=== PATIENT | female | born 1995 | race Caucasian/White ===

== ENCOUNTER 2018-03-10 23:41 | Emergency (ER) | payer OTHER ==
[2018-03-10 23:51] VITALS: RESP 18
[2018-03-11] MEDS ORDERED: ACETAMINOPHEN TAB 500 MG TAB PO STA (01:10)
--- NOTE | 2018-03-11 01:16 | US ---
EXAMINATION TYPE: US OB >= 14 wk fetus DATE OF EXAM: 03/11/2018 COMPARISON: None CLINICAL HISTORY: PainWalking outside her dog knocked her over having pain. TECHNIQUE: Transabdominal (TA) GESTATIONAL AGE / DATING Physician Established: (17 weeks/2 days) EDC: 08/17/2018 Dates by LMP: (17 weeks/2 days) EDC: 08/17/2018 Dates by First Scan: No previous this is first scan Dates by Current Scan: (18 weeks/1 days) EDC: 08/11/2018 Beta HCG (if available): Not available at this time SURVEY IUP: Single PLACENTA: Posterior PREVIA: No Previa ALTON: 11.6 cm Normal CERVICAL LENGTH (transabdominal: norm > 3.0cm): 3.4 cm BIOMETRY PRESENTATION: Vertex LIE: Longitudinal BPD: 3.96 cm cm 18 weeks / 0 days HC: 15.31 cm 18 weeks / 2 days AC: 12.86 cm 18 weeks / 3 days FL: 2.65 cm 18 weeks / 0 days ESTIMATED WEIGHT IN GRAMS: 230.86 grams ESTIMATED WEIGHT IN LBS/OZ: lbs. 8 oz. WEIGHT PERCENTAGE BASED ON ESTABLISHED DATES: 94.3% HC/AC: 1.19cm Normal FL/AC: 20.61cm Normal HEART RATE: 149 bpm RHYTHM: Normal Viable IUP 18w1d LUIS 08/17/2018 HR 149 BPM IMPRESSION: No complicating process seen.
[2018-03-11 01:32] LABS: Appearance,Urine Cloudy (Clear); Bilirubin,Urine Negative (Negative); Blood,Urine Negative (Negative); Color,Urine Yellow; Glucose,Urine (UA) Negative (Negative); Ketones,Urine Negative (Negative); Leukocyte Esterase,Urine Moderate (Negative); Mucus,Urine Few /hpf; Nitrite,Urine Negative (Negative); Protein,Urine Trace (Negative); RBC,Urine 2 /hpf (0-5); Specific Gravity,Urine 1.027 (1.001-1.035); Squamous Epithelial Cell,Urine 11 /hpf (0-4); Urobilinogen,Urine <2.0 mg/dL (<2.0); WBC,Urine 8 /hpf (0-5)
--- NOTE | 2018-03-11 01:48 | ED ---
Abdominal Pain HPI - General Source: patient Mode of arrival: ambulatory Limitations: no limitations <Norah Stovall - Last Filed: 03/11/18 03:44> <Lolita Sparks - Last Filed: 03/11/18 06:15> - General Chief Complaint: Abdominal Pain Stated Complaint: Fall-17 wks pg Time Seen by Provider: 03/11/18 00:24 - History of Present Illness Initial Comments: 23-year-old female patient who is 17 weeks presents to the emergency department today as a transfer from [facility]. Patient is . States that she was walking her dog when he had jumped up on her and caused her fall landing on her back. Patient denies hitting her head or losing consciousness during the fall. States she is having suprapubic abdominal pain that she describes as sharp and pinching. Patient states she is also having lower back pain radiates and to both hips. Patient denies any other injuries or concerns. She denies any radiation of the pain down her legs. Denies any numbness or tingling to the lower extremities. Denies any saddle anesthesia or loss of bowel or bladder control. Patient denies any abnormal vaginal bleeding or discharge. Patient denies any headache, neck pain, chest pain, shortness of breath, dizziness, weakness, abdominal pain, nausea, vomiting, or difficulties with bowel movements or urination. Patient was transferred here because ultrasound was unavailable at originating facility. She follows with Dr. Gissel CURRY outpatient. (Norah Stovall) - Related Data Home Medications Medication Instructions Recorded Confirmed Escitalopram [Lexapro] 20 mg PO DAILY 10/15/13 06/02/14 Lisdexamfetamine Dimesylate 40 mg PO DAILY 10/15/13 06/02/14 [Vyvanse] Levothyroxine Sodium [Levoxyl] 50 mcg PO DAILY 05/28/14 06/02/14 Lurasidone [Latuda] 40 mg PO DAILY 05/28/14 06/02/14 Norgestimate-Ethinyl Estradiol 1 each PO DAILY 05/28/14 06/02/14 [Ortho Tri-Cyclen 28 Tablet] Previous Rx's Medication Instructions Recorded LORazepam [Ativan] 0.5 mg PO TID PRN #15 tab 05/28/14 Allergies Allergy/AdvReac Type Severity Reaction Status Date / Time quetiapine fumarate Allergy Unknown Unknown Verified 03/10/18 23:50 [From Seroquel] tramadol Allergy Unknown Unknown Verified 03/10/18 23:50 Sulfa (Sulfonamide Allergy Rash/Hives Verified 03/10/18 23:50 Antibiotics) Review of Systems ROS Other: All systems not noted in ROS Statement are negative. <WilmanNorah M - Last Filed: 03/11/18 03:44> ROS Other: All systems not noted in ROS Statement are negative. <Lolita Sparks - Last Filed: 03/11/18 06:15> ROS Statement: Those systems with pertinent positive or pertinent negative responses have been documented in the HPI. Past Medical History Additional Past Medical History / Comment(s): migraine, kidney stones, History of Any Multi-Drug Resistant Organisms: None Reported Past Surgical History: Appendectomy, Cholecystectomy Past Psychological History: Anxiety, Bipolar, Depression Smoking Status: Never smoker Past Alcohol Use History: None Reported Past Drug Use History: None Reported <Norah Stovall - Last Filed: 03/11/18 03:44> General Exam Limitations: no limitations General appearance: alert, in no apparent distress, other (Social well-developed , well-nourished adult female patient in no acute distress. Vital signs upon presentation are temperature 98.8F, pulse 82, respirations 18, blood pressure 133/75, pulse ox 97% on room air.) Eye exam: Present: normal appearance, PERRL, EOMI. Absent: scleral icterus, conjunctival injection, periorbital swelling ENT exam: Present: normal exam, normal oropharynx, mucous membranes moist Neck exam: Present: normal inspection, full ROM, other (Nontender, no step-off, no deformity to firm midline palpation of the posterior cervical spine. Full range of motion without pain or limitation.). Absent: tenderness, meningismus, lymphadenopathy Respiratory exam: Present: normal lung sounds bilaterally. Absent: respiratory distress, wheezes, rales, rhonchi, stridor Cardiovascular Exam: Present: regular rate, normal rhythm, normal heart sounds. Absent: systolic murmur, diastolic murmur, rubs, gallop, clicks GI/Abdominal exam: Present: soft, tenderness (Left lower quadrant), normal bowel sounds. Absent: distended, guarding, rebound, rigid Back exam: Present: normal inspection, other (Nontender, no step-off, no deformity to firm midline palpation of the thoracic and lumbar vertebrae. Full range of motion without pain or limitation.). Absent: vertebral tenderness Neurological exam: Present: alert, oriented X3, CN II-XII intact Psychiatric exam: Present: normal affect, normal mood Skin exam: Present: warm, dry, intact, normal color. Absent: rash <Norah Stovall - Last Filed: 03/11/18 03:44> Vital Signs 03/10/18 03/11/18 23:46 02:26 Temperature 98.8 F 98.0 F Pulse Rate 82 68 Respiratory 18 18 Rate Blood Pressure 133/75 118/64 O2 Sat by Pulse 97 99 Oximetry Medical Decision Making - Radiology Data Radiology results: report reviewed <Norah Stovall - Last Filed: 03/11/18 03:44> <Lolita Sparks - Last Filed: 03/11/18 06:15> - Medical Decision Making 23-year-old female patient presented to the emergency department today for evaluation of lower abdominal pain and low back pain after experiencing a fall today. Patient is 17 weeks . No vaginal bleeding or discharge. Ultrasound was obtained and showed a viable intrauterine with no complicating process identified. heart rate was 149. Urinalysis was obtained and did show 8 white blood cells however sample was contaminated. There is no bacteria present. Patient is asymptomatic at this time, we will culture. Did discuss findings and results with the patient. Patient is also complaining of increased back pain after the fall however we did discuss x-ray and exposure of radiation to the fetus, patient declined x-ray at this time. She was given Tylenol here in the department. She will be discharged at this time with diagnosis of low back strain. She is instructed to follow-up with her [facility] for further evaluation as soon as possible. Return parameters discussed in detail. She verbalizes understanding and agrees with this plan. (Norah Stovall) I was available for consultation in the emergency department. The history and physical exam were done by the midlevel provider. I was consulted for this patient's care. I reviewed the case with the midlevel provider and based on their presentation of the patient, I agree with the assessment, medical decision making and plan of care as documented. (Lolita Sparks) - Lab Data Lab Results 03/11/18 Range/Units 00:50 Urine Color Yellow Urine Appearance Cloudy H (Clear) Urine pH 6.0 (5.0-8.0) Ur Specific [place] 1.027 (1.001-1.035) Urine Protein Trace H (Negative) Urine Glucose (UA) Negative (Negative) Urine Ketones Negative (Negative) Urine Blood Negative (Negative) Urine Nitrite Negative (Negative) Urine Bilirubin Negative (Negative) Urine Urobilinogen <2.0 (<2.0) mg/dL Ur Leukocyte Esterase Moderate H (Negative) Urine RBC 2 (0-5) /hpf Urine WBC 8 H (0-5) /hpf Ur Squamous Epith Cells 11 H (0-4) /hpf Urine Mucus Few H (None) /hpf - Radiology Data ultrasound was obtained. Report was reviewed in its entirety. Impression by Dr. Fox shows no Acute process. Viable intrauterine measuring 18 weeks 1 day with an estimated date of delivery 2018. Heart rate 149 bpm. (Norah Stovall) Disposition Is patient prescribed a controlled substance at d/c from ED?: No Time of Disposition: 01:48 <Norah Stovall - Last Filed: 03/11/18 03:44> <Lolita Sparks - Last Filed: 03/11/18 06:15> Clinical Impression: Abdominal pain during , Acute low back pain Disposition: HOME SELF-CARE Condition: Good Instructions: Acute Low Back Pain (ED), Abdominal Pain in (ED) Additional Instructions: Take Tylenol for pain control. Increase fluids. Follow-up with your [facility] for recheck as soon as possible. Return here immediately for any new, worsening , or concerning symptoms. Referrals: Yane Castillo DO [Primary Care Provider] - 1-2 days
[2018-03-11 02:27] VITALS: BP 118/64; PULSE 68; TEMP 98
== END 2018-03-11 02:27 | disposition home or self-care (01) ==
LOC: SUPCPDRO 23:41 → EC 23:41
DX: O9A.212 Injury, poisoning and certain other consequences of external causes complicating pregnancy, second trimester (principal); S39.012A Strain of muscle, fascia and tendon of lower back, initial encounter; O99.89 Other specified diseases and conditions complicating pregnancy, childbirth and the puerperium; R10.9 Unspecified abdominal pain; O99.342 Other mental disorders complicating pregnancy, second trimester; F41.9 Anxiety disorder, unspecified; F31.9 Bipolar disorder, unspecified; Z3A.18 18 weeks gestation of pregnancy; Z90.49 Acquired absence of other specified parts of digestive tract; Z87.442 Personal history of urinary calculi; Z79.3 Long term (current) use of hormonal contraceptives; Z79.899 Other long term (current) drug therapy; Z88.2 Allergy status to sulfonamides; Z88.5 Allergy status to narcotic agent; Z88.8 Allergy status to other drugs, medicaments and biological substances; W01.0XXA Fall on same level from slipping, tripping and stumbling without subsequent striking against object, initial encounter; W54.1XXA Struck by dog, initial encounter; Y93.K1 Activity, walking an animal
CPT/HCPCS: 76805; 81001; 87086; 99284

== ENCOUNTER 2018-07-12 15:55 | Outpatient (CLI) | payer OTHER ==
[2018-07-12 16:33] VITALS: PULSE 86; RESP 16; TEMP 98.1
[2018-07-12 17:35] VITALS: BP 126/85
--- NOTE | 2018-08-05 10:59 | P.MSEPDOC ---
Presenting Problems - Arrival Data Date of Arrival on Unit: 07/12/18 Time of Arrival on Unit: 16:06 Mode of Transport: Ambulatory - Complaint OB-Reason for Admission/Chief Complaint: Rule Out PROM Comment: pt arrived c/o questionable whether her water broke pt states she had a gush of fluid earlier in the day but [id number] any gush at this time Medical History - Information : 1 Para: 0 Term: 0 : 0 Abortions: Spontaneous or Elective: 0 Number of Living Children: 0 - Gestational Age Gestational Age by LUIS (wks/days): 34 Weeks and 6 Days Review of Systems - Review of Systems Constitutional: No problems Breast: No problems ENT: No problems Cardiovascular: No problems Respiratory: No problems Gastrointestinal: No problems Genitourinary: No problems Musculoskeletal: No problems Neurological: Dizziness Skin: No problems Vital Signs - Temperature Temperature: 98.1 F Temperature Source: Oral - Pulse Right Brachial Pulse Rate: 86 Pulse Assessment Method: Auscultation - Respirations Respiratory Rate: 16 Oxygen Delivery Method: Room Air - Blood Pressure Right Arm Blood Pressure: 126/85 Blood Pressure Mean: 98 Blood Pressure Source: Automatic Cuff Medical Screen Scoring (Post) - Cervical Exam Dilation: 0 cm = 0 Membranes: Intact - Uterine Contractions Frequency: N/A Intensity: N/A - Maternal Vital Signs Maternal Temperature: N/A Maternal Blood Pressure: N/A Signs of Preeclampsia: N/A Maternal Respirations: N/A - Pain Assessment Pain Scale Used: Numeric (1 - 10) Pain Intensity: 0 Pain Management Goal: 0 Pain Behavior: Vocalization - Maternal Trauma Maternal Trauma: N/A - Assessment Heart Rate: 130 Heart Rate - NICHD Category: Category I (Normal) = 0 NST: Reactive Position: N/A - Total Score Total Score (Post): 0 - Post Treatment Level of Risk Post Treatment Level of Risk: Low (0-5) Physician Notification (Post) - Physician Notified Physician Notified Date: 07/12/18 Physician Notified Time: 16:30 Spoke With: dr may New Order Received: Yes - Notification Comment Comment: amnsiure negative cervix closed b/p retaken and 126/85 no h/a or visual distribance. may discharge to home Disposition - Disposition OB Disposition: Discharge to home Discharge Date: 07/12/18 Discharge Time: 17:30 I agree with the RN Medical Screening Exam: Yes Risk & Benefit of care provided described in d/c instruction: Yes Diagnosis: FALSE LABOR BEFORE 37 COMPLETED WEEKS OF GEST, THIRD TRI
== END 2018-07-12 17:35 | disposition home or self-care (01) ==
LOC: FBPOP 15:55
PROVIDERS: ATTEND Obstetrics & Gynecology Obstetrics
DX: O47.03 False labor before 37 completed weeks of gestation, third trimester (principal); Z3A.34 34 weeks gestation of pregnancy
CPT/HCPCS: 59025; 84112; G0463; 99213

== ENCOUNTER 2018-07-22 03:40 | Outpatient (CLI) | payer OTHER ==
[2018-07-22 04:02] VITALS: BP 130/88; PULSE 80; RESP 16; TEMP 97.9
[2018-07-22] MEDS ORDERED: LACTATED RINGERS 1,000 ML IV SCH (04:30)
--- NOTE | 2018-07-28 08:46 | P.MSEPDOC ---
Presenting Problems - Arrival Data Date of Arrival on Unit: 07/22/18 Time of Arrival on Unit: 03:40 Mode of Transport: Wheelchair - Complaint OB-Reason for Admission/Chief Complaint: Possible Onset of Labor Comment: Contractions that started around 2230 this evening. approximately 2-3 minutes apart. denies pain with contractions just feeling tightening with contractions. Medical History - Information : 1 Para: 0 Term: 0 : 0 Abortions: Spontaneous or Elective: 0 Number of Living Children: 0 - Gestational Age Gestational Age by LUIS (wks/days): 36 Weeks and 2 Days Review of Systems - Review of Systems Constitutional: No problems Breast: No problems ENT: No problems Cardiovascular: No problems Respiratory: No problems Gastrointestinal: No problems Genitourinary: No problems Musculoskeletal: No problems Neurological: No problems Skin: No problems Vital Signs - Temperature Temperature: 97.9 F Temperature Source: Oral - Pulse Right Pulse Rate: 80 - Respirations Respiratory Rate: 16 - Blood Pressure Right Arm Blood Pressure: 130/88 Blood Pressure Mean: 102 Blood Pressure Source: Automatic Cuff Medical Screen Scoring (Pre) - Cervical Exam Dilation: 1-3 cm = 1 Effacement: More than 50% = 2 Membranes: Intact - Uterine Contractions Frequency: > or = 36 weeks =2 Duration: > 40 seconds = 2 Intensity: N/A - Maternal Vital Signs Maternal Temperature: N/A Maternal Blood Pressure: N/A Signs of Preeclampsia: N/A Maternal Respirations: N/A - Assessment Baseline FHR: 130 Heart Rate - NICHD Category: Category I (Normal) = 0 NST: Reactive Position: N/A Station: N/A - Total Score Total Score (Pre): 7 - Level of Risk Level of Risk: Medium (6-9) Physician Notification (Pre) - Physician Notified Physician Notified Date: 07/22/18 Physician Notified Time: 04:16 Physician/Practitioner Notifed:: Dr. Taylor New Order Received: Yes - Notification Comment Comment: Initiate IV access, give 1L bolus of LR, recheck cervix in one hour, if cervix remains unchanged okay to discharge patient home with instructions and patient to keep regularly scheduled appt. with Roseann in the office today. Disposition - Disposition OB Disposition: Discharge to home, Written follow up instructions reviewed Discharge Date: 07/22/18 Discharge Time: 05:45 I agree with the RN Medical Screening Exam: Yes Risk & Benefit of care provided described in d/c instruction: Yes Diagnosis: FALSE LABOR, UNSPECIFIED
== END 2018-07-22 05:45 | disposition home or self-care (01) ==
LOC: FBPOP 03:40
PROVIDERS: ATTEND Obstetrics & Gynecology
DX: O47.03 False labor before 37 completed weeks of gestation, third trimester (principal); Z3A.36 36 weeks gestation of pregnancy
CPT/HCPCS: 59025; 96360; G0463; 96365; 99213; 99214

== ENCOUNTER 2018-07-23 19:25 | Outpatient (CLI) | payer OTHER ==
[2018-07-23 21:40] VITALS: BP 131/81; PULSE 78; RESP 16; TEMP 97.8
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
== END 2018-07-23 20:55 | disposition home or self-care (01) ==
LOC: FBPOP 19:25
PROVIDERS: ATTEND Obstetrics & Gynecology
DX: O99.353 Diseases of the nervous system complicating pregnancy, third trimester (principal); G89.11 Acute pain due to trauma; Z3A.36 36 weeks gestation of pregnancy
CPT/HCPCS: 59025; G0463; 99213

== ENCOUNTER 2018-07-23 20:59 | Emergency (ER) | payer OTHER ==
[2018-07-23 21:10] VITALS: RESP 16
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
[2018-07-23 21:52] VITALS: BP 126/86; PULSE 78; TEMP 98.5
== END 2018-07-23 21:51 | disposition home or self-care (01) ==
LOC: EC 20:59
DX: O9A.213 Injury, poisoning and certain other consequences of external causes complicating pregnancy, third trimester (principal); S09.90XA Unspecified injury of head, initial encounter; Z3A.36 36 weeks gestation of pregnancy; Z88.2 Allergy status to sulfonamides; Z88.5 Allergy status to narcotic agent; Z88.8 Allergy status to other drugs, medicaments and biological substances; W00.0XXA Fall on same level due to ice and snow, initial encounter; Y93.01 Activity, walking, marching and hiking
CPT/HCPCS: 99283 ×2; 59025; G0463; 99213

== ENCOUNTER 2018-08-13 05:52 | Inpatient (IN) | payer OTHER ==
[2018-08-13] MEDS ORDERED: OXYTOCIN 10 UNIT/ML 1 ML VIAL IM PRN (06:10)
[2018-08-13] MEDS ORDERED: CARBOPROST TROMETHAMINE 250 MCG/ML 1 ML AMP IM PRN (06:10)
[2018-08-13] MEDS ORDERED: LIDOCAINE 0.5% (PF) 5 MG/ML (50 ML SDV) SQ PRN (06:10)
[2018-08-13] MEDS ORDERED: PENICILLIN G POTASSIUM 5,000,000 UNIT in DEXTROSE 5% IN WATER 100 ML IVPB STA ×2 (06:10)
[2018-08-13] MEDS ORDERED: METHYLERGONOVINE 0.2 MG/ML 1 ML AMP IM PRN (06:10)
[2018-08-13] MEDS ORDERED: TERBUTALINE 1 MG/ML VIAL SQ PRN (06:10)
[2018-08-13] MEDS ORDERED: OXYTOCIN 30 UNITS/500 ML NS 30 UNIT in SALINE 1 500ML.BAG IV SCH (06:15)
[2018-08-13 06:17] VITALS: BMI 39.9
[2018-08-13 06:20] LABS: Basophils % (A) 0 %; Eosinophils # (A) 0.1 k/uL (0-0.7); Eosinophils % (A) 1 %; HCT 37.1 % (34.0-46.0); HGB 12.3 gm/dL (11.4-16.0); Lymphocytes # (A) 2.7 k/uL (1.0-4.8); Lymphocytes % (A) 19 %; MCH 30.9 pg (25.0-35.0); MCHC 33.2 g/dL (31.0-37.0); MCV 93.2 fL (80.0-100.0); Mean Platelet Volume 7.3; Monocytes # (A) 0.5 k/uL (0-1.0); Monocytes % (A) 3 %; Neutrophils # (A) 10.4 k/uL (1.3-7.7); Neutrophils % (A) 75 %; Platelet Count 251 k/uL (150-450); RBC 3.98 m/uL (3.80-5.40); RDW 13.5 % (11.5-15.5); WBC 13.8 k/uL (3.8-10.6)
[2018-08-13] MEDS: LACTATED RINGERS 1,000 ML IV SCH ×2 (06:29→21:20)
--- NOTE | 2018-08-13 07:51 | P.HPOB ---
History of Present Illness H&P Date: 08/13/18 This is a 23-year-old white female 1 para 0 EDC 08/17/2018 at 39-3/7 weeks' gestation. Patient presents for induction for advanced cervical dilatation. Fetus is been active throughout the . She is having mild irregular contractions at this time. She denies fluid leakage or vaginal bleeding. Past medical history is significant for anxiety and depression, mild hypertension. Social history patient is single, she has never been a smoker, she denies alcohol or drug use. Family history is significant for hypertension and hepatitis C along with depression. ALLERGIES include sulfa to which reports an anaphylactic reaction, and seasonal ALLERGIES. Current medications vitamins daily, Zoloft 50 mg daily. Past surgical history is significant for cholecystectomy and appendectomy. Past medical history significant for anxiety, attention deficit disorder, bipolar disorder, borderline personality disorder, depression, obsessive compulsive disorder. She follows with Olga Villaseñor, a therapist at [facility] in [facility]. Obstetric history is significant for blood type O+, rubella status immune. Positive group B strep noted in the urine earlier in the , treated with 3 culture negative. VDRL nonreactive, HIV negative, hepatitis B surface antigen negative. Baseline liver enzymes negative, gonorrhea and chlamydia cultures negative, 1 hour Glucola 121. On exam this is a pleasant young female, 5 foot 5 inches, 240 pounds, blood p ressure 143/88, vital signs otherwise stable. The general physical exam is within normal limits. The chest is clear in all mcintosh. Extremities reveal no edema. Cervix is 6 cm dilated, 70-80% effaced, -2 station, anterior, soft. Vertex presentation. Artificial amniorrhexis reveals clear fluid. heart rate is consistent with reactive NST. Impression: 39-3/7 weeks intrauterine , advanced cervical dilatation, multiple psychiatric diagnoses, otherwise healthy young individual. All signs at this time reassuring from the obstetric standpoint. Plan: Oxytocin per hospital protocol. Continue close maternal and surveillance. Anticipate normal spontaneous vaginal delivery. Review of Systems Constitutional: Reports as per HPI Past Medical History Additional Past Medical History / Comment(s): migraine, kidney stones, History of Any Multi-Drug Resistant Organisms: None Reported Past Surgical History: Appendectomy, Cholecystectomy Past Anesthesia/Blood Transfusion Reactions: No Reported Reaction Past Psychological History: Anxiety, Bipolar, Depression Smoking Status: Never smoker Past Alcohol Use History: None Reported Past Drug Use History: None Reported - Past Family History Father Family Medical History: Coronary Artery Disease (CAD), Hypertension Medications and Allergies Home Medications Medication Instructions Recorded Confirmed Type Pnv No.95/Ferrous Fum/Folic AC 1 tab PO DAILY 07/12/18 08/13/18 History [ Multivitamin Tablet] Allergies Allergy/AdvReac Type Severity Reaction Status Date / Time quetiapine fumarate Allergy Unknown Rash/Hives Verified 08/13/18 06:09 [From Seroquel] Sulfa (Sulfonamide Allergy Anaphylaxis Verified 08/13/18 06:09 Antibiotics) tramadol AdvReac Unknown SEIZURES Verified 08/13/18 06:09 Exam Vital Signs Temp Pulse Resp BP 08/13/18 06:12 98.6 F 96 16 143/88 Intake and Output 08/12/18 08/13/18 08/13/18 22:59 06:59 14:59 Other: Weight 108.862 kg See dictation under HPI please Results Result Diagrams: 08/13/18 06:10 Abnormal Lab Results - Last 24 Hours (Table) 08/13/18 Range/Units 06:10 WBC 13.8 H (3.8-10.6) k/uL Neutrophils # 10.4 H (1.3-7.7) k/uL Assessment and Plan Assessment: 39-3/7 weeks intrauterine , here for induction of labor with advanced cervical dilatation. Plan: Oxytocin per hospital protocol. Continue close maternal and surveillance. Anticipate normal spontaneous vaginal delivery. Time with Patient: Less than 30
[2018-08-13] MEDS ORDERED: fentaNYL (PF) 50 MCG/ML 5 ML AMP ONE (08:49)
[2018-08-13] MEDS ORDERED: ROPIVACAINE 5MG/ML 20ML VIAL ONE (08:49)
[2018-08-13] MEDS ORDERED: SODIUM CHLORIDE 0.9% 100 ML BAG ONE (08:49)
[2018-08-13] MEDS ORDERED: ROPIVACAINE 100 MG, fentaNYL (PF) 200 MCG in SODIUM CHLORIDE 0.9% 76 ML EPIDURAL ONE (09:15)
[2018-08-13] MEDS: PENICILLIN G POTASSIUM 2,500,000 UNIT in DEXTROSE 5% IN WATER 100 ML IVPB SCH ×6 (10:22→21:21)
[2018-08-13] MEDS ORDERED: ZOLPIDEM 5 MG TAB PO PRN (12:42)
[2018-08-13] MEDS ORDERED: LANOLIN CREAM 5 GM TUBE TOPICAL PRN (12:42)
[2018-08-13] MEDS ORDERED: WITCH HAZEL 1 EACH MED..PAD TOPICAL PRN (12:42)
[2018-08-13] MEDS ORDERED: diphenhydrAMINE 50 MG CAP PO PRN (12:42)
[2018-08-13] MEDS ORDERED: diphenhydrAMINE 50 MG/ML 1 ML VIAL IVP PRN ×2 (12:42)
[2018-08-13] MEDS ORDERED: diphenhydrAMINE 25 MG CAP PO PRN (12:42)
[2018-08-13] MEDS ORDERED: SIMETHICONE 80 MG CHEWABLE PO PRN (12:42)
[2018-08-13] MEDS ORDERED: BENZOCAINE/MENTHOL SPRAY 1 GM/SPRAY AEROSOL TOPICAL PRN (12:42)
[2018-08-13] MEDS ORDERED: HYDROCORTISONE 2.5% RECTAL CREAM 30 GM TUBE RECTAL PRN (12:42)
[2018-08-13] MEDS ORDERED: ACETAMINOPHEN TAB 325 MG TAB PO PRN (12:42)
--- NOTE | 2018-08-13 12:42 | P.PROBDLV ---
Vaginal Delivery Note - . Vaginal Delivery Note: This is a 23-year-old white female 1 para 0 EDC 08/17/2018 at 39-3/7 weeks' gestation. Patient presented for induction for advanced cervical dilatation. Her is Dictated by anxiety and depression, obsessive compulsive disorder, and bipolar disease. Blood type O positive, rubella status immune, group B strep cultures positive. Please see my dictated history and physical for details. Artificial amniorrhexis revealed clear fluid. Oxytocin was started and titrated per hospital protocol. She requested epidural and this was placed without difficulty per the anesthesia staff. She became completely dilated at 1151 hours and began the second stage of labor at that time. Successfully in the dorsal lithotomy position. Perineal body was prepped and draped in usual sterile fashion. Ultimately the fetus's head delivered in the occiput anterior position. There was no nuchal cord noted. The restituted accordingly. The right or anterior shoulder was delivered from underneath the pubic symphysis at which time the oropharynx, nasopharynx, and external nares were all bulb suctioned. Patient was officially delivered of a liveborn male at 1221 hours. Umbilical cord was doubly clamped and ligated, he was handed to waiting nurses for evaluation where scores of 9 and 9 at one and 5 minutes respectively were given. Placenta delivered spontaneously, it was inspected and noted to be intact with trivascular cord at 12-3 hours. Uterus is massaged. Inspection of the cervix, vagina, perineum, periurethral, and perirectal areas revealed 2 small labial minora lacerations. These are repaired easily with a running locking stitch of 3-0 Vicryl for excellent reapproximation. All sponge needle and enhancement counts are correct at the end of the procedure. Infant weighs 8 lbs. 0 oz. or 3630 g. Patient is requesting circumcision for her infant son. All sponge needle and enhancement counts are correct at the end of the procedure.
[2018-08-13] MEDS ORDERED: OXYTOCIN 20 UNITS/1000 ML NS 1,000 ML IV SCH (12:45)
[2018-08-13] MEDS: IBUPROFEN 600 MG TAB PO PRN (14:32)
[2018-08-13] MEDS: SENNOSIDES-DOCUSATE SODIUM 1 EACH TAB PO SCH (20:25)
[2018-08-14 06:40] LABS: Basophils % (A) 0 %; Eosinophils # (A) 0.1 k/uL (0-0.7); Eosinophils % (A) 1 %; HCT 30.7 % (34.0-46.0); HGB 10.2 gm/dL (11.4-16.0); Lymphocytes # (A) 3.7 k/uL (1.0-4.8); Lymphocytes % (A) 21 %; MCHC 33.4 g/dL (31.0-37.0); MCV 92.9 fL (80.0-100.0); Mean Platelet Volume 7.9; Monocytes # (A) 0.7 k/uL (0-1.0); Monocytes % (A) 4 %; Neutrophils # (A) 12.9 k/uL (1.3-7.7); Neutrophils % (A) 73 %; Platelet Count 215 k/uL (150-450); RDW 13.7 % (11.5-15.5); WBC 17.7 k/uL (3.8-10.6)
[2018-08-14] MEDS: SENNOSIDES-DOCUSATE SODIUM 1 EACH TAB PO SCH (07:41)
--- NOTE | 2018-08-14 08:21 | P.DS ---
Providers Date of admission: 08/13/18 05:52 Expected date of discharge: 08/14/18 Attending physician: Nuvia Chauhan Primary care physician: [facility] Course: This is a 23-year-old white female 1 para 0 EDC 08/17/2018 at 39-3/7 weeks' gestation. Patient presented for induction for advanced cervical dilatation. essentially unremarkable, group B strep cultures positive, rubella status immune, blood type O positive. Please see dictated history and physical for details. Artificial amniorrhexis revealed clear fluid. Oxytocin was started and titrated. She went on to deliver vaginally a male infant with scores of 9 and 9 at one and 5 minutes respectively. Infant weight 8 pounds or 3630 g. Estimated blood loss 400 mL, bilateral small labial lacerations were noted, second degree, easily repaired. Please see dictated delivery note for details. This morning the patient is doing well. She denies anxiety or depression, she feels energized and happy. is doing well, circumcision will be performed. Patient's vital signs are stable and she has remained afebrile. Fundus is firm and in the midline, symmetric and 18 week size. Extremities are negative for edema. Breasts are not engorged. Patient is being discharged home this morning in very good condition. She will follow-up with me in the office in 6 weeks. I have reminded her no intercourse, tampons or douching. She will use [id number] Advil or Aleve as needed for pain. I've asked her to call me with any fevers shakes or chills, foul smelling or copious lochia, with the passage of large blood clots, with any pain not alleviated by [id number] products, or indeed with any concerns. We have briefly reviewed contraceptive options and she will consider these options and we will discuss this in the office to follow. Patient Condition at Discharge: Good Plan - Discharge Summary Discharge Rx Participant: No New Discharge Prescriptions: No Action Pnv No.95/Ferrous Fum/Folic AC [ Multivitamin Tablet] 1 tab PO DAILY Discharge Medication List Pnv No.95/Ferrous Fum/Folic AC [ Multivitamin Tablet] 1 tab PO DAILY 07/12/18 [History] Follow up Appointment(s)/Referral(s): Nuvia Chauhan MD [STAFF PHYSICIAN] - 6 Weeks Discharge Disposition: HOME SELF-CARE
[2018-08-14] MEDS: IBUPROFEN 600 MG TAB PO PRN (08:28)
[2018-08-14 09:13] VITALS: BP 127/85; PULSE 99; RESP 17; TEMP 98.1
== END 2018-08-14 15:20 | disposition home or self-care (01) | DRG 806 ==
LOC: 4FBP 05:52
PROVIDERS: ADMIT Obstetrics & Gynecology; ATTEND Obstetrics & Gynecology
PROC: 10E0XZZ Delivery of Products of Conception, External Approach (ICD-10-PCS; principal; 2018-08-13)
PROC: 0KQM0ZZ Repair Perineum Muscle, Open Approach (ICD-10-PCS; 2018-08-13)
PROC: 3E033VJ Introduction of Other Hormone into Peripheral Vein, Percutaneous Approach (ICD-10-PCS; 2018-08-13)
PROC: 10907ZC Drainage of Amniotic Fluid, Therapeutic from Products of Conception, Via Natural or Artificial Opening (ICD-10-PCS; 2018-08-13)
PROC: 00HU33Z Insertion of Infusion Device into Spinal Canal, Percutaneous Approach (ICD-10-PCS; 2018-08-13)
PROC: 3E0R3BZ Introduction of Anesthetic Agent into Spinal Canal, Percutaneous Approach (ICD-10-PCS; 2018-08-13)
DX: O70.1 Second degree perineal laceration during delivery (principal); O10.92 Unspecified pre-existing hypertension complicating childbirth; Z37.0 Single live birth; Z3A.39 39 weeks gestation of pregnancy; O99.824 Streptococcus B carrier state complicating childbirth; O99.344 Other mental disorders complicating childbirth; F31.9 Bipolar disorder, unspecified; G43.909 Migraine, unspecified, not intractable, without status migrainosus; F60.3 Borderline personality disorder; F42.9 Obsessive-compulsive disorder, unspecified; F41.9 Anxiety disorder, unspecified; J30.2 Other seasonal allergic rhinitis; F98.8 Other specified behavioral and emotional disorders with onset usually occurring in childhood and adolescence; Z79.899 Other long term (current) drug therapy; Z90.49 Acquired absence of other specified parts of digestive tract; Z87.442 Personal history of urinary calculi; Z88.2 Allergy status to sulfonamides; Z88.5 Allergy status to narcotic agent; Z88.8 Allergy status to other drugs, medicaments and biological substances; Z82.49 Family history of ischemic heart disease and other diseases of the circulatory system; Z81.8 Family history of other mental and behavioral disorders; Z83.1 Family history of other infectious and parasitic diseases
CPT/HCPCS: 85025; 86850; 86900; 86901

== ENCOUNTER 2019-02-12 15:28 | Emergency (ER) | payer OTHER ==
[2019-02-12 15:42] VITALS: RESP 18
--- NOTE | 2019-02-12 16:46 | ED ---
General Adult HPI - General Chief complaint: Chest Pain Stated complaint: Chest pressure Time Seen by Provider: 02/12/19 16:02 Source: patient Mode of arrival: ambulatory Limitations: no limitations - History of Present Illness Initial comments: Patient presents to the ED complaining of having chest pressure for the past week or so. Patient states that she was sent here from her primary care provider's clinic for further evaluation. Patient states that her chest pressure is diffuse in her chest and constant. Patient denies having any associated symptoms. Patient denies trauma or injury, fever or chills, neck/arm/jaw/back pain, pleuritic pain, dyspnea, cough or cold symptoms, palpitations, syncope, abdominal pain, nausea/vomiting/diarrhea, leg or calf swelling or tenderness, or any other symptoms or complaints. - Related Data Home Medications Medication Instructions Recorded Confirmed Pnv No.95/Ferrous Fum/Folic AC 1 tab PO DAILY 07/12/18 08/13/18 [ Multivitamin Tablet] Allergies Allergy/AdvReac Type Severity Reaction Status Date / Time quetiapine fumarate Allergy Unknown Rash/Hives Verified 02/12/19 15:41 [From Seroquel] Sulfa (Sulfonamide Allergy Anaphylaxis Verified 02/12/19 15:41 Antibiotics) tramadol AdvReac Unknown SEIZURES Verified 02/12/19 15:41 Review of Systems ROS Statement: Those systems with pertinent positive or pertinent negative responses have been documented in the HPI. ROS Other: All systems not noted in ROS Statement are negative. Past Medical History Additional Past Medical History / Comment(s): migraine, kidney stones History of Any Multi-Drug Resistant Organisms: None Reported Past Surgical History: Appendectomy, Cholecystectomy Past Anesthesia/Blood Transfusion Reactions: No Reported Reaction Past Psychological History: Anxiety, Bipolar, Depression Smoking Status: Never smoker Past Alcohol Use History: None Reported Past Drug Use History: None Reported - Past Family History Father Family Medical History: Coronary Artery Disease (CAD), Hypertension General Exam Limitations: no limitations General appearance: alert, in no apparent distress Head exam: Present: atraumatic, normocephalic Eye exam: Present: normal appearance, EOMI ENT exam: Present: mucous membranes dry Respiratory exam: Present: normal lung sounds bilaterally. Absent: respiratory distress, wheezes, rales, rhonchi, chest wall tenderness Cardiovascular Exam: Present: regular rate, normal rhythm, normal heart sounds GI/Abdominal exam: Present: soft. Absent: distended, tenderness Extremities exam: Absent: tenderness, pedal edema, calf tenderness Neurological exam: Present: alert, oriented X3 Psychiatric exam: Present: normal affect Skin exam: Present: warm, dry, intact Course Vital Signs 02/12/19 02/12/19 15:37 18:14 Temperature 98.5 F Pulse Rate 82 79 Respiratory 18 18 Rate Blood Pressure 137/85 119/88 O2 Sat by Pulse 98 98 Oximetry EKG Findings - EKG Comments: EKG Findings:: Normal sinus rhythm, ventricular rate 73 bpm, normal MD, QRS and QT intervals, no acute ST or T-wave abnormality, normal axis Medical Decision Making - Medical Decision Making Patient reports having constant chest pressure for the past week. Patient's troponin and d-dimer are both negative. Patient's EKG and chest x-ray are both unremarkable. Patient has a low heart score of 1, and her only identifiable cardiac risk factor is a family history of cardiac disease in her father. Patient's vital signs are reassuring. I do not think that the patient's chest pressure is from a cardiac or emergent etiology. Patient denies development of any new symptoms while in the ED. Patient remains alert and breathing comfortably. Patient and boyfriend are aware of the patient's test results. Patient feels comfortable going home at this time. Patient was instructed to follow up closely with her PCP (Dr. Posey). Patient was instructed to return to the ED should she develop increased pain, shortness of breath, a fever, feeling dizzy or faint, or new or worsening symptoms. Patient feels comfortable with this plan. - Lab Data Result diagrams: 02/12/19 16:40 02/12/19 16:40 Lab Results 02/12/19 02/12/19 02/12/19 Range/Units 16:40 16:40 16:40 WBC 8.6 (3.8-10.6) k/uL RBC 4.35 (3.80-5.40) m/uL Hgb 13.1 (11.4-16.0) gm/dL Hct 38.2 (34.0-46.0) % MCV 87.8 (80.0-100.0) fL MCH 30.2 (25.0-35.0) pg MCHC 34.4 (31.0-37.0) g/dL RDW 13.7 (11.5-15.5) % Plt Count 269 (150-450) k/uL Neutrophils % 66 % Lymphocytes % 26 % Monocytes % 4 % Eosinophils % 2 % Basophils % 0 % Neutrophils # 5.7 (1.3-7.7) k/uL Lymphocytes # 2.2 (1.0-4.8) k/uL Monocytes # 0.4 (0-1.0) k/uL Eosinophils # 0.2 (0-0.7) k/uL Basophils # 0.0 (0-0.2) k/uL D-Dimer 0.58 (<0.60) mg/L FEU Sodium 140 (137-145) mmol/L Potassium 4.1 (3.5-5.1) mmol/L Chloride 102 (98-107) mmol/L Carbon Dioxide 29 (22-30) mmol/L Anion Gap 9 mmol/L BUN 21 H (7-17) mg/dL Creatinine 0.68 (0.52-1.04) mg/dL Est GFR (CKD-EPI)AfAm >90 (>60 ml/min/1.73 sqM) Est GFR (CKD-EPI)NonAf >90 (>60 ml/min/1.73 sqM) Glucose 96 (74-99) mg/dL Calcium 9.9 (8.4-10.2) mg/dL Total Bilirubin 0.2 (0.2-1.3) mg/dL AST 23 (14-36) U/L ALT 18 (9-52) U/L Alkaline Phosphatase 79 (38-126) U/L Troponin I (0.000-0.034) ng/mL Total Protein 7.3 (6.3-8.2) g/dL Albumin 4.2 (3.5-5.0) g/dL 02/12/19 Range/Units 16:40 WBC (3.8-10.6) k/uL RBC (3.80-5.40) m/uL Hgb (11.4-16.0) gm/dL Hct (34.0-46.0) % MCV (80.0-100.0) fL MCH (25.0-35.0) pg MCHC (31.0-37.0) g/dL RDW (11.5-15.5) % Plt Count (150-450) k/uL Neutrophils % % Lymphocytes % % Monocytes % % Eosinophils % % Basophils % % Neutrophils # (1.3-7.7) k/uL Lymphocytes # (1.0-4.8) k/uL Monocytes # (0-1.0) k/uL Eosinophils # (0-0.7) k/uL Basophils # (0-0.2) k/uL D-Dimer (<0.60) mg/L FEU Sodium (137-145) mmol/L Potassium (3.5-5.1) mmol/L Chloride (98-107) mmol/L Carbon Dioxide (22-30) mmol/L Anion Gap mmol/L BUN (7-17) mg/dL Creatinine (0.52-1.04) mg/dL Est GFR (CKD-EPI)AfAm (>60 ml/min/1.73 sqM) Est GFR (CKD-EPI)NonAf (>60 ml/min/1.73 sqM) Glucose (74-99) mg/dL Calcium (8.4-10.2) mg/dL Total Bilirubin (0.2-1.3) mg/dL AST (14-36) U/L ALT (9-52) U/L Alkaline Phosphatase (38-126) U/L Troponin I <0.012 (0.000-0.034) ng/mL Total Protein (6.3-8.2) g/dL Albumin (3.5-5.0) g/dL - Radiology Data Radiology results: image reviewed (Chest x-ray shows no acute disease process) Disposition Clinical Impression: Chest pain Disposition: HOME SELF-CARE Condition: Stable Instructions (If sedation given, give patient instructions): Chest Pain (ED) Additional Instructions: Return to the ER immediately if you develop new or worsening pain, shortness of breath, feeling dizzy or faint, vomiting, or new or worsening symptoms. Is patient prescribed a controlled substance at d/c from ED?: No Referrals: Marina Posey MD [Primary Care Provider] - 1-2 days Time of Disposition: 19:08
[2019-02-12 17:12] LABS: Basophils % (A) 0 %; Eosinophils # (A) 0.2 k/uL (0-0.7); Eosinophils % (A) 2 %; HCT 38.2 % (34.0-46.0); HGB 13.1 gm/dL (11.4-16.0); Lymphocytes # (A) 2.2 k/uL (1.0-4.8); Lymphocytes % (A) 26 %; MCH 30.2 pg (25.0-35.0); MCHC 34.4 g/dL (31.0-37.0); MCV 87.8 fL (80.0-100.0); Mean Platelet Volume 6.8; Monocytes # (A) 0.4 k/uL (0-1.0); Monocytes % (A) 4 %; Neutrophils # (A) 5.7 k/uL (1.3-7.7); Neutrophils % (A) 66 %; Platelet Count 269 k/uL (150-450); RBC 4.35 m/uL (3.80-5.40); RDW 13.7 % (11.5-15.5); WBC 8.6 k/uL (3.8-10.6)
[2019-02-12 17:21] LABS: ALT 18 U/L (9-52); AST 23 U/L (14-36); African American GFR (CKD) >90 (>60 ml/min/1.73 sqM); Albumin 4.2 g/dL (3.5-5.0); Alkaline Phosphatase 79 U/L (38-126); Anion Gap 9 mmol/L; Blood Urea Nitrogen 21 mg/dL (7-17); Calcium 9.9 mg/dL (8.4-10.2); Carbon Dioxide 29 mmol/L (22-30); Chloride 102 mmol/L (98-107); Glucose 96 mg/dL (74-99); Non-African American GFR(CKD) >90 (>60 ml/min/1.73 sqM); Potassium 4.1 mmol/L (3.5-5.1); Sodium 140 mmol/L (137-145); Total Bilirubin 0.2 mg/dL (0.2-1.3); Total Protein 7.3 g/dL (6.3-8.2)
[2019-02-12 19:15] VITALS: BP 119/78; PULSE 77; TEMP 97.6
--- NOTE | 2019-02-12 23:32 | XR ---
EXAMINATION TYPE: XR chest 2V DATE OF EXAM: 02/12/2019 COMPARISON: NONE HISTORY: Chest pressure TECHNIQUE: Frontal and lateral views of the chest are obtained. FINDINGS: There is no focal air space opacity, pleural effusion, or pneumothorax seen. The cardiac silhouette size is within normal limits. The osseous structures are intact. IMPRESSION: No acute cardiopulmonary process.
== END 2019-02-12 19:34 | disposition home or self-care (01) ==
LOC: EC 15:28
DX: R07.89 Other chest pain (principal); Z82.49 Family history of ischemic heart disease and other diseases of the circulatory system; Z88.8 Allergy status to other drugs, medicaments and biological substances; Z88.2 Allergy status to sulfonamides; Z88.6 Allergy status to analgesic agent
CPT/HCPCS: 36415; 71046; 80053; 84484; 84703; 85025; 85379; 93005; 99285

== ENCOUNTER → 2019-05-12 | Outpatient (CLI) | payer OTHER ==
--- NOTE | 2019-05-12 15:10 | US ---
EXAMINATION TYPE: Transabdominal DATE OF EXAM: 05/12/2019 2:57 PM COMPARISON: NONE CLINICAL HISTORY: O46.91 Antepartum hemorrhage, unspecified, first t. Dates. Irregular menses. Nuria ent states she spotted on Friday and has stopped. EXAM PERFORMED: Transabdominal (TA) EXAM MEASUREMENTS: GESTATIONAL AGE / DATING Dates by LMP: (10 weeks/4 days) EDC: 12/04/2019 Dates by Current Scan for: ( 8 weeks/2 days) EDC: 12/20/2019 MATERNAL ANATOMY Uterus: 10.5 x 6.8 x 6.2 cm Right Ovary: 3.8 x 2.2 x 1.5 cm Left Ovary: 3.1 x 1.9 x 1.9 cm Post CDS / Adnexa: no free fluid Presence of free fluid: no Presence of corpus luteal cyst: left ovarian lesion with peripheral vascular flow = 1.6 x 1.6 x 1.3 c m Presence of subchorionic bleed: no GESTATION / SURVEY CRL: 1.8 cm (8 weeks/2 days) MSD: seen, not measured Yolk Sac (normal less than 6mm): 2.7 mm Heart Rate: 170 bpm Rhythm: Normal IUP: Live IUP Date of LMP: 02/27/2019, Beta HcG (if available): Not available at this time Single live IUP measuring 8 weeks 2 days. IMPRESSION: Single live intrauterine paranasal with a sonographic age of 8 weeks and 2 days and estim ated date of delivery of 12/20/2019. Dates are discordant with menstrual age.
== END | disposition home or self-care (01) ==
LOC: RADUSWWP 13:50
PROVIDERS: ATTEND Obstetrics & Gynecology
DX: O20.0 Threatened abortion (principal); Z3A.08 8 weeks gestation of pregnancy
CPT/HCPCS: 36415; 76801; 84702; 86850; 86900; 86901

== ENCOUNTER 2019-10-30 15:59 | Outpatient (CLI) | payer OTHER ==
[2019-10-30 16:27] LABS: Amorphous Sediment,Urine Rare /hpf; Appearance,Urine Clear (Clear); Bilirubin,Urine Negative (Negative); Blood,Urine Negative (Negative); Color,Urine Yellow; Glucose,Urine (UA) Negative (Negative); Ketones,Urine Negative (Negative); Leukocyte Esterase,Urine Small (Negative); Mucus,Urine Rare /hpf; Nitrite,Urine Negative (Negative); Protein,Urine Negative (Negative); RBC,Urine 1 /hpf (0-5); Specific Gravity,Urine 1.022 (1.001-1.035); Squamous Epithelial Cell,Urine 4 /hpf (0-4); Urobilinogen,Urine <2.0 mg/dL (<2.0); WBC,Urine 2 /hpf (0-5)
[2019-10-30 16:33] LABS: Protein/Creatinine Ratio,Urine 0.111
[2019-10-30 16:52] LABS: Basophils % (A) 0 %; Eosinophils # (A) 0.1 k/uL (0-0.7); Eosinophils % (A) 1 %; HCT 31.2 % (34.0-46.0); HGB 10.5 gm/dL (11.4-16.0); Lymphocytes # (A) 2.1 k/uL (1.0-4.8); Lymphocytes % (A) 19 %; MCH 31.6 pg (25.0-35.0); MCHC 33.7 g/dL (31.0-37.0); MCV 93.8 fL (80.0-100.0); Monocytes # (A) 0.4 k/uL (0-1.0); Monocytes % (A) 4 %; Neutrophils # (A) 8.1 k/uL (1.3-7.7); Neutrophils % (A) 74 %; Platelet Count 222 k/uL (150-450); RBC 3.33 m/uL (3.80-5.40); RDW 13.2 % (11.5-15.5)
[2019-10-30 17:00] LABS: ALT 7 U/L (4-34); AST 16 U/L (14-36); African American GFR (CKD) >90 (>60 ml/min/1.73 sqM); Blood Urea Nitrogen 10 mg/dL (7-17); LDH 365 U/L (313-618); Non-African American GFR(CKD) >90 (>60 ml/min/1.73 sqM); Uric Acid 3.4 mg/dL (3.7-7.4)
[2019-10-30 17:31] VITALS: BP 137/89; PULSE 100; RESP 15; TEMP 96.4
== END 2019-10-30 17:32 | disposition home or self-care (01) ==
LOC: FBPOP 15:59
PROVIDERS: ATTEND Obstetrics & Gynecology
DX: O26.93 Pregnancy related conditions, unspecified, third trimester (principal); Z3A.32 32 weeks gestation of pregnancy
CPT/HCPCS: 59025; 82570; 84156; 82565; 83615; 84450; 84460; 84520; 84550; 85025; 81001; G0463; 99215

== ENCOUNTER 2019-12-14 06:00 | Inpatient (IN) | payer OTHER ==
[2019-12-14] MEDS ORDERED: OXYTOCIN 10 UNIT/ML 1 ML VIAL IM PRN (06:31)
[2019-12-14] MEDS ORDERED: CARBOPROST TROMETHAMINE 250 MCG/ML 1 ML AMP IM PRN (06:31)
[2019-12-14] MEDS ORDERED: LIDOCAINE 0.5% (PF) 5 MG/ML (50 ML SDV) SQ PRN (06:31)
[2019-12-14] MEDS ORDERED: PENICILLIN G POTASSIUM 5,000,000 UNIT in DEXTROSE 5% IN WATER 100 ML IVPB STA ×2 (06:31)
[2019-12-14] MEDS ORDERED: METHYLERGONOVINE 0.2 MG/ML 1 ML AMP IM PRN (06:31)
[2019-12-14] MEDS ORDERED: TERBUTALINE 1 MG/ML VIAL SQ PRN (06:31)
[2019-12-14] MEDS: LACTATED RINGERS 1,000 ML IV SCH ×2 (06:38→09:34)
[2019-12-14] MEDS: OXYTOCIN 30 UNITS/500 ML NS 30 UNIT in SALINE 1 500ML.BAG IV SCH (06:38)
[2019-12-14 07:00] LABS: Basophils # (A) 0.1 k/uL (0-0.2); Basophils % (A) 0 %; Eosinophils # (A) 0.1 k/uL (0-0.7); Eosinophils % (A) 1 %; HCT 38.1 % (34.0-46.0); HGB 12.1 gm/dL (11.4-16.0); Lymphocytes # (A) 2.8 k/uL (1.0-4.8); Lymphocytes % (A) 22 %; MCHC 31.7 g/dL (31.0-37.0); MCV 91.5 fL (80.0-100.0); Mean Platelet Volume 8.3; Monocytes # (A) 0.5 k/uL (0-1.0); Monocytes % (A) 4 %; Neutrophils # (A) 9.3 k/uL (1.3-7.7); Neutrophils % (A) 72 %; Platelet Count 259 k/uL (150-450); RBC 4.17 m/uL (3.80-5.40); RDW 14.6 % (11.5-15.5); WBC 12.9 k/uL (3.8-10.6)
--- NOTE | 2019-12-14 07:07 | P.HPOB ---
History of Present Illness H&P Date: 12/14/19 Chief Complaint: Here for induction of labor with favorable multiparous cervix ` This is a 24-year-old white female 2 para 1001 EDC 12/20/2038 weeks gestation. Patient presents for induction with favorable multiparous cervix. Fetus is been active throughout the . She denies vaginal bleeding or fluid leakage. Past medical history significant for ADD, anxiety, borderline personality disorder, depression. Patient has a benign heart murmur, anemia, and obsessive- compulsive disorder as well. Past surgical history appendectomy, cholecystectomy. Current medications Zoloft 100 mg, one and a half tabs daily, vitamin daily. ALLERGIES sulfa to which reports an anaphylactic reaction, along with seasonal ALLERGIES. Family history significant for hypertension, depression, borderline diabetes, hepatitis, stroke. Reproductive history normal spontaneous vaginal delivery last year of 8 pound male , unremarkable. Social history patient boyfriend neck is present, she has never been a smoker, she denies alcohol or drug use. Obstetric history is significant for positive group B strep cultures, blood type O+, rubella status immune. VDRL testing, hepatitis B surface antigen, HIV testing, urine culture, gonorrhea and chlamydia cultures all negative. One-hour Glucola 102. On exam patient is 5 foot 5 inches, 240 pounds, blood pressure 127/82. General physical exam is within normal limits. Extremities reveal no edema. Cervix is 4 cm dilated, 70% effaced, -2 station, vertex presentation. Artificial amniorrhexis reveals clear fluid. heart rate is in the 140s with frequent accelerations, consistent with reactive NST. Impression: 39 week intrauterine , here for induction of labor, all signs reassuring. Positive group B strep cultures, first dose of penicillin G is been administered. Plan: Oxytocin per hospital protocol. Close maternal and surveillance. Antibiotics per hospital protocol. Anticipate normal spontaneous vaginal delivery. Review of Systems Constitutional: Reports as per HPI Past Medical History Additional Past Medical History / Comment(s): migraine, kidney stones History of Any Multi-Drug Resistant Organisms: None Reported Past Surgical History: Appendectomy, Cholecystectomy Past Anesthesia/Blood Transfusion Reactions: No Reported Reaction Past Psychological History: Anxiety, Bipolar, Depression Past Alcohol Use History: None Reported Past Drug Use History: None Reported - Past Family History Father Family Medical History: Coronary Artery Disease (CAD), Hypertension Medications and Allergies Home Medications Medication Instructions Recorded Confirmed Type Pnv No.95/Ferrous Fum/Folic AC 1 tab PO DAILY 07/12/18 12/14/19 History [ Multivitamin Tablet] Aspirin 81 mg PO DAILY 10/30/19 12/14/19 History FLUoxetine HCL [PROzac] 40 mg PO DAILY 10/30/19 12/14/19 History Allergies Allergy/AdvReac Type Severity Reaction Status Date / Time quetiapine fumarate Allergy Unknown Rash/Hives Verified 12/14/19 06:25 [From Seroquel] Sulfa (Sulfonamide Allergy Anaphylaxis Verified 12/14/19 06:25 Antibiotics) tramadol AdvReac Unknown SEIZURES Verified 12/14/19 06:25 Exam Intake and Output 12/13/19 12/14/19 12/14/19 22:59 06:59 14:59 Other: Weight 108.862 kg Dictation under HPI please Results Result Diagrams: 12/14/19 06:25 Abnormal Lab Results - Last 24 Hours (Table) 12/14/19 Range/Units 06:25 WBC 12.9 H (3.8-10.6) k/uL Neutrophils # 9.3 H (1.3-7.7) k/uL Assessment and Plan Assessment: 39 week intrauterine , positive group B strep cultures, here for induction of labor. All signs reassuring. Plan: Oxytocin per hospital protocol. Analgesic options reviewed. Penicillin G per protocol. Close maternal and surveillance. Anticipate normal spontaneous vaginal delivery. Time with Patient: Less than 30
[2019-12-14] MEDS ORDERED: ROPIVACAINE 5MG/ML 20ML VIAL ONE (09:35)
[2019-12-14] MEDS ORDERED: SODIUM CHLORIDE 0.9% 100 ML BAG ONE (09:35)
[2019-12-14] MEDS ORDERED: fentaNYL (PF) 50 MCG/ML 5 ML AMP ONE (09:35)
[2019-12-14] MEDS: PENICILLIN G POTASSIUM 2,500,000 UNIT in DEXTROSE 5% IN WATER 100 ML IVPB SCH ×2 (10:18)
[2019-12-14] MEDS ORDERED: SIMETHICONE 80 MG CHEWABLE PO PRN (13:21)
[2019-12-14] MEDS ORDERED: BENZOCAINE/MENTHOL SPRAY 1 GM/SPRAY AEROSOL TOPICAL PRN (13:21)
[2019-12-14] MEDS ORDERED: diphenhydrAMINE 25 MG CAP PO PRN (13:21)
[2019-12-14] MEDS ORDERED: WITCH HAZEL 1 EACH MED..PAD TOPICAL PRN (13:21)
[2019-12-14] MEDS ORDERED: diphenhydrAMINE 50 MG CAP PO PRN (13:21)
[2019-12-14] MEDS ORDERED: HYDROCORTISONE 2.5% RECTAL CREAM 30 GM TUBE RECTAL PRN (13:21)
[2019-12-14] MEDS ORDERED: ZOLPIDEM 5 MG TAB PO PRN (13:21)
[2019-12-14] MEDS ORDERED: ACETAMINOPHEN TAB 325 MG TAB PO PRN (13:21)
[2019-12-14] MEDS ORDERED: LANOLIN CREAM 5 GM TUBE TOPICAL PRN (13:21)
[2019-12-14] MEDS ORDERED: diphenhydrAMINE 50 MG/ML 1 ML VIAL IVP PRN ×2 (13:21)
--- NOTE | 2019-12-14 13:21 | P.PROBDLV ---
Vaginal Delivery Note - . Vaginal Delivery Note: This is a 24-year-old white female 2 para 1001 EDC 12/20/2038 weeks gestation. Patient presented for induction with favorable multiparous cervix. is unremarkable, rubella status immune, blood type O positive, group B strep cultures positive. Please see dictated history and physical for details. Artificial amniorrhexis revealed clear fluid. Oxytocin was started and titrated per hospital protocol. Penicillin G was given 2 doses. Epidural was requested and placed. heart tones were reassuring throughout the first and second stages of labor. Patient became completely dilated at 1300 hrs. Perineal body was prepped and draped in usual sterile fashion. 's head delivered in the occiput anterior position and she restituted accordingly. There was a nuchal cord 1 that was reduced on the perineal body. The left or anterior shoulder was delivered easily from underneath the pubic symphysis at which time the oropharynx, nasopharynx, and external nares were all bulb suctioned on the perineal body. Patient was officially delivered of a liveborn female at 1308 hrs. Umbilical cord was doubly clamped and ligated, she was handed to waiting nurses for evaluation where scores of 9 and 9 at one and 5 minutes respectively were given. Placenta delivered spontaneously, it was inspected and noted to be intact with trivascular cord at 1310 hrs. Perineal body is then redraped. Careful inspection of the cervix, vagina, perineum, periurethral, and perirectal areas reveals no lacerations or defects. Infant weighs 3640 g or 8 lbs. 0 oz. Uterus is massaged. Total estimated blood loss 250 mL's. Patient and her family are allowed to begin the bonding experience in the LDR.
[2019-12-14] MEDS ORDERED: OXYTOCIN 20 UNITS/1000 ML NS 1,000 ML IV SCH (13:30)
[2019-12-14] MEDS: IBUPROFEN 600 MG TAB PO PRN (14:40)
[2019-12-15 07:09] LABS: Basophils % (A) 0 %; Eosinophils # (A) 0.2 k/uL (0-0.7); Eosinophils % (A) 1 %; HCT 33.2 % (34.0-46.0); HGB 10.9 gm/dL (11.4-16.0); Lymphocytes # (A) 2.9 k/uL (1.0-4.8); Lymphocytes % (A) 19 %; MCH 30.1 pg (25.0-35.0); MCHC 32.8 g/dL (31.0-37.0); MCV 91.9 fL (80.0-100.0); Mean Platelet Volume 8.8; Monocytes # (A) 0.7 k/uL (0-1.0); Monocytes % (A) 5 %; Neutrophils # (A) 11.1 k/uL (1.3-7.7); Neutrophils % (A) 74 %; Platelet Count 205 k/uL (150-450); RBC 3.62 m/uL (3.80-5.40); RDW 14.6 % (11.5-15.5); WBC 15.1 k/uL (3.8-10.6)
[2019-12-15] MEDS: SENNOSIDES-DOCUSATE SODIUM 1 EACH TAB PO SCH ×2 (07:56→08:32)
--- NOTE | 2019-12-15 08:00 | P.DS ---
Providers Date of admission: 12/14/19 06:05 Expected date of discharge: 12/15/19 Attending physician: Nuvia Chauhan Primary care physician: Stated None Hospital Course: This is a 24-year-old white female 2 para 1001 EDC 12/21/2019 at 39 weeks gestation patient was admitted for elective induction of labor. has been unremarkable, rubella status immune, blood type O positive, group B strep cultures positive. Please see dictated history and physical for details. Artificial amniorrhexis revealed clear fluid. Oxytocin was started and titrated per hospital protocol. Patient received 2 doses of penicillin G for group B strep prophylaxis. She went on to deliver smoothly a liveborn female with scores of 9 and 9 at one and 5 minutes respectively. There was a nuchal cord 1 easily reduced. Infant weighed 3640 g or 8 lbs. 0 oz. There was an estimated blood loss recorded of 250 mL's. No perineal lacerations. Please see my dictated delivery note for details. This morning the patient is doing well. She slept well. There is minimal lochia rubra. She complains of no pain. The fundus is firm and in the midline, symmetric and 18 week size. Extremities are negative for edema. Breasts are not engorged. Chest is clear. Patient is judged to be in very good condition for discharge home. She will follow-up with me in the office in 6 weeks. I have reminded her no intercourse, tampons or douching. She will continue taking her vitamin daily. She will use [id number] Advil or Aleve, or Motrin as needed for pain. I've asked her to call me with any fevers shakes or chills, foul smelling or copious lochia, with the passage of large blood clots, with any pain not alleviated by [id number] products, or indeed with any concerns. We have briefly reviewed options for contraception and we will discuss this further in the office. [facility] infant will follow-up with bottom cager as per recommendations. Patient will resume her Prozac 40 mg every morning, and call with any signs or symptoms of depression. Assessment: Doing very well day #1 Patient Condition at Discharge: Good Plan - Discharge Summary Discharge Rx Participant: No New Discharge Prescriptions: No Action Pnv No.95/Ferrous Fum/Folic AC [ Multivitamin Tablet] 1 tab PO DAILY FLUoxetine HCL [PROzac] 40 mg PO DAILY Aspirin 81 mg PO DAILY Discharge Medication List Pnv No.95/Ferrous Fum/Folic AC [ Multivitamin Tablet] 1 tab PO DAILY 07/12/18 [History] Aspirin 81 mg PO DAILY 10/30/19 [History] FLUoxetine HCL [PROzac] 40 mg PO DAILY 10/30/19 [History] Follow up Appointment(s)/Referral(s): Nuvia Chauhan MD [STAFF PHYSICIAN] - 6 Weeks Discharge Disposition: HOME SELF-CARE
[2019-12-15 08:30] VITALS: BP 131/82; PULSE 63; RESP 16; TEMP 97.7
[2019-12-15] MEDS: PENICILLIN G POTASSIUM 2,500,000 UNIT in DEXTROSE 5% IN WATER 100 ML IVPB SCH ×4 (08:31→08:32)
[2019-12-15] MEDS: LACTATED RINGERS 1,000 ML IV SCH (08:32)
[2019-12-15] MEDS: OXYTOCIN 30 UNITS/500 ML NS 30 UNIT in SALINE 1 500ML.BAG IV SCH (08:32)
[2019-12-15] MEDS ORDERED: FLUoxetine HCL 20 MG CAP PO SCH (09:00)
[2019-12-15] MEDS: IBUPROFEN 600 MG TAB PO PRN (12:16)
== END 2019-12-15 14:00 | disposition home or self-care (01) | DRG 805 ==
LOC: 4FBP 06:05
PROVIDERS: ADMIT Obstetrics & Gynecology; ATTEND Obstetrics & Gynecology
PROC: 3E0R3BZ Introduction of Anesthetic Agent into Spinal Canal, Percutaneous Approach (ICD-10-PCS; principal; 2019-12-14)
PROC: 10E0XZZ Delivery of Products of Conception, External Approach (ICD-10-PCS; principal; 2019-12-14)
PROC: 00HU33Z Insertion of Infusion Device into Spinal Canal, Percutaneous Approach (ICD-10-PCS; principal; 2019-12-14)
PROC: 3E033VJ Introduction of Other Hormone into Peripheral Vein, Percutaneous Approach (ICD-10-PCS; principal; 2019-12-14)
PROC: 10907ZC Drainage of Amniotic Fluid, Therapeutic from Products of Conception, Via Natural or Artificial Opening (ICD-10-PCS; principal; 2019-12-14)
DX: O69.81X0 Labor and delivery complicated by cord around neck, without compression, not applicable or unspecified (principal); O99.42 Diseases of the circulatory system complicating childbirth; Z37.0 Single live birth; O99.354 Diseases of the nervous system complicating childbirth; O99.824 Streptococcus B carrier state complicating childbirth; O99.344 Other mental disorders complicating childbirth; F31.9 Bipolar disorder, unspecified; F41.9 Anxiety disorder, unspecified; F60.3 Borderline personality disorder; F42.9 Obsessive-compulsive disorder, unspecified; O99.52 Diseases of the respiratory system complicating childbirth; J30.2 Other seasonal allergic rhinitis; G43.909 Migraine, unspecified, not intractable, without status migrainosus; R01.1 Cardiac murmur, unspecified; Z3A.39 39 weeks gestation of pregnancy; Z79.82 Long term (current) use of aspirin; Z79.899 Other long term (current) drug therapy; Z88.2 Allergy status to sulfonamides; Z87.442 Personal history of urinary calculi; Z90.49 Acquired absence of other specified parts of digestive tract; Z82.49 Family history of ischemic heart disease and other diseases of the circulatory system; Z82.3 Family history of stroke; Z81.8 Family history of other mental and behavioral disorders; Z83.79 Family history of other diseases of the digestive system
CPT/HCPCS: 85025; 86850; 86900; 86901

== ENCOUNTER → 2020-01-12 | Outpatient (CLI) | payer OTHER | END | disposition home or self-care (01) | LOC: LABWHC1 09:34 | PROVIDERS: ATTEND Internal Medicine | DX: Z03.818 Encounter for observation for suspected exposure to other biological agents ruled out (principal) | CPT/HCPCS: U0003; C9803 ==